=== PATIENT | male | born 1980 | race Caucasian/White ===

== ENCOUNTER 2016-06-06 03:15 | Emergency (ER) | payer OTHER ==
--- NOTE | ~2016-06-06 | EKG ---
PATIENT: SHANTE ISAAC UNIT #: [id number] Ventricular Rate: 120 BPM Atrial Rate: 120 BPM P-R Interval: 142 ms QRS Duration: 84 ms Q-T Interval: 302 ms QTC Calculation(Bezet): 426 ms P [place]: 68 degrees Calculated R [place]: 40 degrees Calculated T [place]: 139 degrees Diagnosis Line: Sinus tachycardia Diagnosis Line: Nonspecific ST and T wave abnormality Diagnosis Line: Abnormal ECG Diagnosis Line: When compared with ECG of 16-NOV-2014 19:38, Diagnosis Line: No significant change was found Diagnosis Line: Confirmed by JOJO BURCH MD ([id number]) on Diagnosis Line: 06/06/2016 12:01:38 PM INTERPRETING MD: RAVIN
--- NOTE | ~2016-06-06 | CT71 ---
[facility] A Service of [facility] RADIOLOGY TEXT RESULTS PATIENT: SHANTE ISAAC LOCATION: [facility] : 80 UNIT #: [id number] AGE: [address]: Grady Cassidy MD SEX: M ORDER DR: [id number] [facility] [address] [place], [place] [address] [id number] E MR#: [id number] #: [id number] NAME: SHANTE ISAAC. : 1980 SEX: M STUDY DATE/TIME: 06/06/2016 3:41 UNIT: SABRA ROOM: STUDY DESCRIPTION: CT Head Wo Contrast Attending Physician: Er Doctor Milind Ordering Physician: Bruce Orr M.D. Primary Care Physician: Cosmo Mars M.D. MEDICAL IMAGING REPORT This report is preliminary unless electronic signature is present EXAM CT head without IV contrast COMPARISON None INDICATION 35-year-old male with altered level of consciousness today. Combativeness. History of hypertension. Suspected drug overdose. TECHNIQUE This CT exam was performed with one or more of the following radiation dose reduction techniques: automatic exposure control, adjustment of mA and/or kV according to patient size, and iterative reconstruction. FINDINGS No acute fractures or suspicious osseous lesions. Mastoid air cells, middle ears and visualized paranasal sinuses are well-aerated. Normal cerebral volume. No abnormal extraaxial fluid collection or acute intracranial hemorrhage. No mass effect. No convincing evidence of acute ischemia. IMPRESSION Normal head CT. Dictated by... Neftaly Lopez M.D. THIS IS AN ELECTRONICALLY VERIFIED REPORT Neftaly Lopez M.D. at 06/06/2016 6:50 PM CRISTIANE/eleonora [facility] A Service [facility] RADIOLOGY TEXT RESULTS PATIENT: SHANTE ISAAC LOCATION: [facility] : 80 UNIT #: [id number] AGE: [address]: Grady Cassidy MD SEX: M ORDER DR: TD: 06/06/2016 08:14 JOB #: [id number] MEDICAL IMAGING REPORT COPY
--- NOTE | ~2016-06-06 | EKG ---
PATIENT: SHANTE ISAAC UNIT #: [id number] Ventricular Rate: 107 BPM Atrial Rate: 107 BPM P-R Interval: 134 ms QRS Duration: 86 ms Q-T Interval: 322 ms QTC Calculation(Bezet): 429 ms P [place]: 77 degrees Calculated R [place]: 30 degrees Calculated T [place]: 90 degrees Diagnosis Line: Sinus tachycardia Diagnosis Line: Nonspecific T wave abnormality Diagnosis Line: Abnormal ECG Diagnosis Line: When compared with ECG of 06-JUN-2016 07:07, Diagnosis Line: (unconfirmed) Diagnosis Line: No significant change was found Diagnosis Line: Confirmed by JOJO BURCH MD ([id number]) on Diagnosis Line: 06/06/2016 12:06:41 PM INTERPRETING MD: RAVIN
--- NOTE | ~2016-06-06 | CR72 ---
[facility] A Service of [facility] RADIOLOGY TEXT RESULTS PATIENT: SHANTE ISAAC LOCATION: [facility] : 80 UNIT #: [id number] AGE: [address]: Grady Cassidy MD SEX: M ORDER DR: [id number] [facility] [address] [place], [place] [address] [id number] E MR#: [id number] Acc #: [id number] NAME: SHANTE ISAAC. : 1980 SEX: M STUDY DATE/TIME: 06/06/2016 3:22 UNIT: [facility] ROOM: STUDY DESCRIPTION: CR Chest Single View Portable Attending Physician: Er Doctor [facility] Ordering Physician: Bruce Orr M.D. Primary Care Physician: Cosmo Mars M.D. MEDICAL IMAGING REPORT This report is preliminary unless electronic signature is present EXAM Portable AP view of the chest COMPARISON November 16, 2014. INDICTIONS 35-year-old male with dyspnea tonight. Hypoxia. Suspected drug overdose. FINDINGS No evidence of pneumothorax, pleural effusion or acute airspace disease. Cardiomediastinal silhouette is normal. IMPRESSION No acute radiographic abnormality. Dictated by... Neftaly Lopez M.D. THIS IS AN ELECTRONICALLY VERIFIED REPORT Neftaly Lopez M.D. at 06/06/2016 6:52 PM CRISTIANE/victoriano TD: 06/06/2016 08:25 JOB #: [id number] MEDICAL IMAGING REPORT COPY
[~2016-06-06 03:15] MED LIST: ADVIL200 M2 PO; ALLERGY RELIEF25 M1 PO; BACTRIM DS TABL1 TA1 PO; BUSPAR PO; CATAPRES-TTS-20.2 M1 PO; DEPAKOTE; DIVALPROEX SOD500 MG PO; FISH OIL300 MG; FLEXERIL PO; FLEXERIL10 MG PO; FLOMAX0.4 M1 DOB; IBUPROFEN800 MG PO; KETOPROFEN PO; LEVAQUIN PO; LINZESS290 MCG PO; LORTAB 7.5-5001 TAB; NEURONTIN; NEURONTIN PO; NO MEDICATIONS; NORCO 5/325 TAB1 TAB PO; NORCO 7.5-3251 EACH PO; NORFLEX100 M1 PO; OMEPRAZOLE40 M1 PO; PERCOCET 5-3251 TAB PO; PERPHENAZINE4 MG PO; SYMBICORT INH; TESSALON200 MG PO; THORAZINE PO; TRILEPTAL300 MG PO; TYLENOL EXTRA500 M1 PO; VOLTAREN75 MG PO; [UNRECOGNIZED DRUG - OTHER]
[2016-06-06 06:09] LABS: BASOPHIL# 0.1 X10e3 (0-0.3); BASOPHIL% 0.5 % (0-2.5); EOSINOPHIL# 0.2 X10e3 (0-0.7); EOSINOPHIL% 1.5 % (0.0-7.0); HEMATOCRIT 43.7 % (38.0-50.0); HEMOGLOBIN 14.7 gm/dL (13.0-16.0); LYMPHOCYTE# 2.7 X10e3 (1.0-3.5); LYMPHOCYTE% 20.8 % (17.0-45.0); MEAN CELL VOLUME 83.7 FL (83-96); MEAN CORPUSCULAR HEMOGLOBIN 28.2 PG (28-34); MEAN CORPUSCULAR HGB CONC 33.7 g/dL (30-36); MEAN PLATELET VOLUME 7.9 FL (6.5-11.5); MONOCYTE# 1.3 X10e3 (0-1.0); MONOCYTE% 10.1 % (3.0-12.0); NEUTROPHIL# 8.8 X10e3 (1.5-7.1); NEUTROPHIL% 67.1 % (40-75); PLATELET COUNT 266 X10e3 (140-420); RED BLOOD COUNT 5.22 X10e (3.90-5.60); RED CELL DISTRIBUTION WIDTH 13.8 % (11.0-15.5); WHITE BLOOD COUNT 13.1 X10e3 (4.0-10.5)
[2016-06-06 06:11] LABS: DIFF IND NO
[2016-06-06 06:47] LABS: ALBUMIN SERUM 4.5 g/dL (3.5-5.0); ALKALINE PHOSPHATASE 66 U/L (32-92); ALT (SGPT) 19 U/L (10-40); AST (SGOT) 23 U/L (10-42); BILIRUBIN, DIRECT 0.2 mg/dL (0.0-0.2); BILIRUBIN,TOTAL 1.2 mg/dL (0.2-2.0); BLOOD UREA NITROGEN 16 mg/dL (9-23); BUN/CREATININE RATIO 11.42; CALCIUM SERUM 9.1 mg/dL (8.4-10.2); CARBON DIOXIDE 23 mmol/L (22-31); CHLORIDE 106 mmol/L (100-111); CREATININE SERUM 1.4 mg/dL (0.6-1.4); GLOM FILT RATE Estimated ABOVE60 mL/min (>60); GLUCOSE FASTING 95 mg/dL (70-110); POTASSIUM 3.9 mmol/L (3.5-5.1); PROTEIN TOTAL SERUM 7.4 g/dL (6.0-8.3); SODIUM 138 mmol/L (135-145)
[2016-06-06 06:48] LABS: ALCOHOL BLOOD <5 mg/dL (0)
[2016-06-06 09:41] LABS: %MB 1.4 % (0.0-4.0); MB 7.8 ng/ml
[2016-06-06 16:21] LABS: AMPHETAMINE POS (NEG); BARBITURATES NEG (NEG); BENZODIAZEPINES POS (NEG); COCAINE POS (NEG); MARIJUANA NEG (NEG); OPIATES NEG (NEG); TRICYCLIC ANTIDEPRESSANTS NEG (NEG); U METHADONE NEG (NEG)
== END 2016-06-06 18:25 | disposition other institution (70) ==
LOC: CED 03:15
PROVIDERS: Emergency Medicine
DX: F11.122 Opioid abuse with intoxication with perceptual disturbance (principal); F11.159 Opioid abuse with opioid-induced psychotic disorder, unspecified; F15.122 Other stimulant abuse with intoxication with perceptual disturbance; F15.159 Other stimulant abuse with stimulant-induced psychotic disorder, unspecified; J45.909 Unspecified asthma, uncomplicated; K21.9 Gastro-esophageal reflux disease without esophagitis; F17.210 Nicotine dependence, cigarettes, uncomplicated; Z88.8 Allergy status to other drugs, medicaments and biological substances
CPT/HCPCS: 36415; 70450; 71010; 80048; 80076; 80307; 82550; 82553; 82947; 84484; 85025; 93005; 96361; 96372; 96374; 96375; 99285; G0480; J1630; J2060; J3486

== ENCOUNTER 2016-06-06 19:07 | Inpatient (IN) | payer OTHER ==
--- NOTE | ~2016-06-06 | PA ---
Unit #: [id number] #: [id number] Patient: SHANTE ISAAC [id number] [facility] [address] [place] [address] [id number] I MR#: [id number] NAME: SHANTE ISAAC. ROOM: P106 Age: 35 Sex: M Admission Date: 06/06/2016 : 1980 Date of Assessment: Attending Physician: Shilo Chi M.D. Admitting Physician: Shilo Chi M.D. Primary Care Physician: Cosmo Mars M.D. PSYCHIATRIC ASSESSMENT INFORMANT Patient's reliability, fair; chart reliability, good. CHIEF COMPLAINT History of methamphetamine abuse, cocaine abuse, depression. HISTORY OF PRESENT ILLNESS The patient was recently admitted to hospital on 03/09/2016 through 03/23/2016 with history of multiple admission in the past. The patient was admitted with the above-mentioned complaint. The patient lives at home with his grandmother. The patient presented at [facility] due to delusional thoughts that have caused him to have lack of sleep due to methamphetamine and cocaine. The patient reports no sleep in the last several days, lives with his grandmother currently on disability for mental illness. The patient stated that he uses about $200 worth of methamphetamine and 1 g of cocaine 2 to 3 days ago. The patient reported he knows that the [place] and Manoj are attempted to break into the grandmother's house and the patient was very paranoid, anxious, nervous, labile, agitated and received p.r.n. Haldol, Cogentin and Ativan. The patient reported someone is trying to kill him. The patient denied any suicidal or homicidal ideation, but delusional thoughts, mood lability, agitation, substance abuse, needing inpatient admission at this time for psychiatric stabilization. PAST PSYCHIATRIC HISTORY Remarkable for history of previous admission at [facility], [facility], 2005, 2008, 2014 and 2016 September and March. FAMILY HISTORY AND SOCIAL HISTORY The patient is on disability, lives with grandmother. MEDICAL HISTORY Remarkable for obesity, COPD, GERD, GI, long history of substance abuse including methamphetamine. MEDICATION HISTORY None. ALLERGIES No known drug allergies. SUBSTANCE ABUSE HISTORY Unit #: [id number] #: [id number] Patient: SHANTE ISAAC History of tobacco use, age of onset 13; alcohol, age of onset 13; marijuana, age of onset 13; crack cocaine, age of onset 22; amphetamine, age of onset 35; prescription medication, age of onset 35. History of blackouts. No history of any IV drug use. REVIEW OF SYSTEMS HEENT: Eyes clear. Ears, nose, mouth, throat clear. CARDIOVASCULAR: Unremarkable. RESPIRATORY: Unremarkable. GI: Unremarkable. : Unremarkable. SKIN: Unremarkable. LYMPH NODE: Unremarkable. NEUROLOGIC: Unremarkable. ENDOCRINE: Unremarkable. HEMATOLOGIC: Unremarkable. ALLERGIC/IMMUNOLOGIC: Unremarkable. MUSCULOSKELETAL: Muscle strength and tone, no atrophy or abnormal movement. Gait normal except as mentioned above. MENTAL STATUS EXAMINATION CONSTITUTIONAL: Measurement of vital signs; temperature 97.7, heart rate 70, respirations 21, blood pressure 109/70, weight is 240 pounds. GENERAL APPEARANCE: The patient is dressed casually. The patient did not show any facial deformity. MUSCULOSKELETAL: Please see above. PSYCHIATRIC EXAMINATION Description of speech; slow in rate, but regular. Description of thought process, circumstantial, delusional, paranoid. Description of abnormal psychotic thinking, delusional, paranoid as mentioned above, problem with anger, temper, mood lability, substance abuse, but no suicidal or homicidal ideation, but guarded, paranoid, agitation, aggression. Description of patient's judgment, concerning. Everyday activity, poor. Social situation, poor and concerning. Psychiatric condition, poor. Complete mental status examination; oriented in time, place, and person. Attention span and concentration, poor. Language, able to name object. Fund of knowledge, poor vocabulary poor. Mood and affect, labile. Insight and judgment, poor. ASSETS AND LIABILITIES Assets; the patient is articulate and is able to take care of his ADL. Liability; substance abuse and mood lability. ADMITTING DIAGNOSES Psychiatric: 1. Bipolar mood disorder, not otherwise specified, F31.89, most recent episode mixed with psychotic feature. 2. 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 3. Cocaine use disorder, severe, F14.20. Secondary diagnosis: Deferred. Medical diagnosis: Please refer to H and P. Stressors: Psychosocial stressors. PSYCHIATRIC PLAN, TREATMENT GOAL, AND DISCHARGE PLAN Unit #: [id number] #: [id number] Patient: SHANTE ISAAC 1. Advised to admit the patient on the inpatient unit. Provide safe, supportive, and structured environment. 2. Ordered labs; CBC, CMP, UA, and UDS. 3. Precaution for aggression, self-harm, psychosis. 4. The patient is to attend all the programing on the inpatient unit group therapy, individual therapy, and chemical dependency group. 5. Monitor for withdrawal symptoms and the patient was advised Zyprexa 10 mg at bedtime and Neurontin 300 mg three times a day. We will closely monitor the patient's mood and behavior. If needed, consider further adjustment of medication. Also ordered Diastat p.r.n. The patient's home medication continued including Depakote. 6. Treatment goal is to attain euthymic mood, gain insight into his problem, and learn coping skills. 7. Discharge plan; plan is to stabilize the patient and consider followup in outpatient program. ESTIMATED LENGTH OF STAY 2 weeks. Dictated by... Yee Mortensen/zane TD: 06/08/2016 06:31 JOB #: [id number] PSYCHIATRIC ASSESSMENT X Shilo Chi MD X PSYCHIATRIC ASSESSMENT
--- NOTE | ~2016-06-06 | PN ---
Unit #: [id number] #: [id number] Patient: SANTY ISAAC [id number] [facility] [address] [place] [address] [id number] I MR#: [id number] NAME: SANTY ISAAC. ROOM: [facility] Age: 35 Sex: M Admission Date: 06/06/2016 : 1980 Attending Physician: Shilo Chi M.D. Admitting Physician: Shilo Chi M.D. Primary Care Physician: Yee Torres PROGRESS NOTES DATE OF SERVICE 06/08/2016 DISCUSSION Santy Isaac is a 35-year-old female seen on 06/08/2016. The patient interviewed, chart reviewed. Obtained information from nursing staff. The patient was withdrawn, isolative, guarded. Hygiene and grooming poor. The patient missed his breakfast. The patient reports that he is still feeling paranoid but feeling somewhat better. The patient yesterday was extremely paranoid and received a p.r.n. Haldol IM. The patient was cooperative, redirectable. Reports making progress. The patient continues to be isolative, guarded, flat affect. Complete Review of Systems: Unremarkable. MENTAL STATUS EXAMINATION General Appearance: The patient dressed casually. Attention span, concentration: Poor. Oriented in place and person. Mood and affect: Labile. Speech: Slow. Thought process: Circumstantial, guarded, paranoid. Denied any thoughts of harming self or others but isolative, guarded, seclusive. Recent and remote memory: Poor. Insight and judgment: Poor. DIAGNOSES 1. Amphetamine abuse disorder, moderate. 2. Mood disorder not otherwise specified. 3. Psychosis not otherwise specified. ASSESSMENT/PLAN Advised to continue with current medication and therapeutic protocol. We will monitor response to medication and make further adjustment of medication. Dictated by... Yee Mortensen/lottie TD: 06/10/2016 07:17 JOB #: [id number] Unit #: [id number] #: [id number] Patient: SANTY ISAAC PROGRESS NOTES X Shilo Chi MD NOTE
--- NOTE | ~2016-06-06 | HP ---
Unit #: [id number] #: [id number] Patient: SANTY ISAAC [id number] [place] [address] [id number] I MR#: [id number] NAME: SANTY ISAAC. ROOM: P106 Age: 35 Sex: M Admission Date: 06/06/2016 : 1980 Attending Physician: Shilo Chi M.D. Admitting Physician: Shilo Chi M.D. Primary Care Physician: Cosmo Mars M.D. HISTORY AND PHYSICAL HISTORY OF PRESENT ILLNESS Santy is a 35 year old admitted to [address] [place] [address] reporting auditory and visual hallucinations. He has had other admissions to this facility for the same. PAST MEDICAL HISTORY 1. Long history of illicit substance abuse to include methamphetamine. 2. Obesity. 3. COPD. 4. GERD. 5. GI. PAST SURGICAL HISTORY Inguinal hernia repair. ALLERGIES No known drug allergies. SOCIAL HISTORY Smokes 1-1/2 packs per day. Drinks alcohol and admits to illicit substance abuse to include methamphetamine. FAMILY HISTORY Medically noncontributory. REVIEW OF SYSTEMS He does not answer any questions appropriately. He remains psychotic. Nursing staff reports no nausea, vomiting or diarrhea. He has had no cough or increased temperature. CURRENT MEDICATIONS 1. Detox protocol. 2. Neurontin 300 mg t.i.d. 3. Benadryl 50 mg q.h.s. PHYSICAL EXAMINATION GENERAL: Alert, obese, no apparent distress. VITAL SIGNS: Blood pressure 110/64, heart rate 80, respirations 16, temperature 98.6. WEIGHT: 240. HEIGHT: 6 feet 1 inch. SKIN: Warm and dry without rash or lesion. HEENT: Normocephalic. TMs not viewed. Oral and nasal passages clear. Conjunctivae clear. PERRLA. EOMs intact. Unit #: [id number] #: [id number] Patient: SANTY ISAAC NECK: Supple without lymphadenopathy or thyromegaly. HEART: Regular rate and rhythm without murmur. LUNGS: Clear. ABDOMEN: Soft, nontender. : Not done. EXTREMITIES: No evidence of cyanosis, clubbing or edema. Moves all without focal deficit. NEUROLOGICAL: Unable to complete extended exam. He does move all extremities without focal deficit. Hand sap bi architect is equal and gait is normal. IMPRESSION Psychiatric admission. RECOMMENDATIONS PSYCHIATRIC: Per psychiatrist. MEDICAL: See no contraindications to participate in facility's activities. MEDICAL PROGNOSIS Good. MEDICAL CONDITION Stable. Dictated by... Kenisha Gray P.A.-C. for Yee Proctor/angus TD: 06/07/2016 16:11 JOB #: [id number] HISTORY AND PHYSICAL X Kenisha Gray HISTORY AND PHYSICAL
--- NOTE | ~2016-06-06 | DS ---
Unit #: [id number] #: [id number] Patient: SHANTE ISAAC [id number] [facility] [address] [place] [address] [id number] I MR#: [id number] NAME: SHANTE ISAAC. ROOM: [facility] Age: 35 Sex: M Admission Date: 06/06/2016 : 1980 Discharge Date: 06/09/2016 Attending Physician: Shilo Chi M.D. Primary Care Physician: Cosmo Mars M.D. DISCHARGE SUMMARY REASON FOR ADMISSION Psychosis, substance abuse, depression. DIAGNOSTIC STUDIES LABORATORY RESULTS: Remarkable for urine drug screen positive for benzodiazepine, cocaine, amphetamine. HOSPITAL COURSE The patient was admitted to inpatient unit on 06/06/2016 on and discharged on 06/09/2016 against medical advice. The patient was still having problem with mood lability and paranoia. The patient was not treatment focused, oppositional, aggressive, hostile, but denied any thoughts of harming self or others. The patient will be benefitted with inpatient treatment, but the patient was not agreeable, therefore the patient was discharged. The patient was not holdable at this time. DISCHARGE MEDICATIONS None. 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 Secondary diagnosis: Deferred. Medical diagnosis: Please refer to H and P. Stressors: Psychosocial stressors. DISCHARGE INSTRUCTIONS The patient to follow up in outpatient clinic as per health care social worker. CONDITION ON DISCHARGE The patient was mad, angry, upset, labile. PROGNOSIS Guarded. DIET AND ACTIVITY As tolerated. The patient was not suicidal or homicidal at the time of discharge. Unit #: [id number] #: [id number] Patient: SHANTE ISAAC Dictated by... Yee Mortensen/zane TD: 06/11/2016 01:27 JOB #: [id number] DISCHARGE SUMMARY X Shilo Chi MD X DISCHARGE SUMMARY
--- NOTE | ~2016-06-06 | PN ---
Unit #: [id number] #: [id number] Patient: SANTY ISAAC [id number] [facility] [address] [place] [address] [id number] I MR#: [id number] NAME: SANTY ISAAC. ROOM: P106 Age: 35 Sex: M Admission Date: 06/06/2016 : 1980 Attending Physician: Shilo Chi M.D. Admitting Physician: Shilo Chi M.D. Primary Care Physician: Yee Torres PROGRESS NOTES DATE OF SERVICE: 06/07/2016 DISCUSSION Santy Isaac is a 35-year-old male, seen on 06/07/2016. The patient was guarded, paranoid, and isolative. The patient was very delusional, paranoid, thinking that somebody is going to break into grandmother's house. The patient was on the telephone agitated, aggressive, and received p.r.n. Haldol, Cogentin, and Ativan. Complete review of systems unremarkable. MENTAL STATUS EXAMINATION General appearance, the patient dressed casually. Attention span and concentration, poor. Oriented in place and person. Mood and affect, labile. Speech, rapid. Thought process, circumstantial. Association; the patient denied any thoughts of harming self or others, but aggressive, hostile, paranoid, delusional. Recent and remote memory, poor. Insight and judgment, poor. DIAGNOSES 1. Psychosis, not otherwise specified. 2. Bipolar mood disorder, not otherwise specified. 3. Amphetamine abuse. 4. Cocaine abuse, moderate. ASSESSMENT AND PLAN Advised to continue with current medication and therapeutic protocol. We will monitor response to medication and make further adjustment of medication. Dictated by... Yee Mortensen/mikel TD: 06/07/2016 20:43 JOB #: [id number] Unit #: [id number] #: [id number] Patient: SANTY ISAAC [place] PROGRESS NOTES X Shilo Chi MD X PROGRESS NOTE
== END 2016-06-09 12:20 | disposition home or self-care (01) | DRG 897 ==
LOC: P1S 19:07
PROC: HZ2ZZZZ Detoxification Services for Substance Abuse Treatment (ICD-10-PCS; principal; 2016-06-06)
DX: F15.222 Other stimulant dependence with intoxication with perceptual disturbance (principal); F14.20 Cocaine dependence, uncomplicated; F31.60 Bipolar disorder, current episode mixed, unspecified; J44.9 Chronic obstructive pulmonary disease, unspecified; K21.9 Gastro-esophageal reflux disease without esophagitis; G47.33 Obstructive sleep apnea (adult) (pediatric); E66.9 Obesity, unspecified; F29 Unspecified psychosis not due to a substance or known physiological condition
CPT/HCPCS: J0515; J1630; J2060

== ENCOUNTER 2016-06-24 17:29 | Emergency (ER) | payer OTHER | END 2016-06-24 17:52 | disposition home or self-care (01) | LOC: SED 17:29 | DX: S40.862A Insect bite (nonvenomous) of left upper arm, initial encounter (principal); S40.861A Insect bite (nonvenomous) of right upper arm, initial encounter; S80.862A Insect bite (nonvenomous), left lower leg, initial encounter; S80.861A Insect bite (nonvenomous), right lower leg, initial encounter; W57.XXXA Bitten or stung by nonvenomous insect and other nonvenomous arthropods, initial encounter; Y92.9 Unspecified place or not applicable; J45.909 Unspecified asthma, uncomplicated; K21.9 Gastro-esophageal reflux disease without esophagitis; F17.200 Nicotine dependence, unspecified, uncomplicated; G40.909 Epilepsy, unspecified, not intractable, without status epilepticus | CPT/HCPCS: 96372; 99283; J1100 ==

== ENCOUNTER 2016-07-10 13:17 | Inpatient (IN) | payer OTHER ==
--- NOTE | ~2016-07-10 | PN ---
Unit #: [id number] #: [id number] Patient: SANTY ISAAC [id number] [facility] [address] [place] [address] [id number] I MR#: [id number] NAME: SANTY ISAAC ROOM: P184 Age: 35 Sex: M Admission Date: 07/10/2016 : 1980 Attending Physician: Shilo Chi M.D. Admitting Physician: Shilo Chi M.D. Primary Care Physician: Yee Torres PROGRESS NOTES DATE OF SERVICE: 07/11/2016 DISCUSSION Santy Isaac is a 35-year-old male, seen on 07/11/2016. The patient interviewed, chart reviewed, and obtained information from nursing staff. The patient reports making progress. The patient wanted to be moved to [facility] to participate in CD programing, tolerating medication fairly well. Isolative, guarded. Complete review of systems unremarkable. MENTAL STATUS EXAMINATION General appearance; the patient dressed casually, tall, well built. Attention span and concentration, fair. Oriented in place and person. Mood and affect, labile. Speech, monotone. Thought process, concrete. The patient denied any thoughts of harming self or others, but guarded. Recent and remote memory, poor. Insight and judgment, poor. DIAGNOSIS Schizophrenia, chronic paranoid type. ASSESSMENT AND PLAN Advised to continue with current medication and therapeutic protocol. We will monitor response to medication and make further adjustment of medication. Dictated by... Yee Mortensen/zane TD: 07/11/2016 18:38 JOB #: [id number] Unit #: [id number] #: [id number] Patient: SANTY ISAAC PROGRESS NOTES Page 1 of 1 X Shilo Chi MD X PROGRESS NOTE
--- NOTE | ~2016-07-10 | DS ---
Unit #: [id number] #: [id number] Patient: SHANTE ISAAC [id number] [place] [address] [id number] I MR#: [id number] NAME: SHANTE ISAAC ROOM: P184 Age: 35 Sex: M Admission Date: 07/10/2016 : 1980 Discharge Date: 07/13/2016 Attending Physician: Shilo Chi M.D. Primary Care Physician: Cosmo Mars M.D. DISCHARGE SUMMARY REASON FOR ADMISSION Psychosis and depression. DIAGNOSTIC STUDIES LABORATORY RESULTS: Urine drug screen positive for benzodiazepine, cocaine, and amphetamine. HOSPITAL COURSE The patient was admitted to inpatient unit on 07/10/2016 and discharged on 07/13/2016. The patient was treated on the inpatient unit with behavior management, chemical dependency group, expressive therapy, psychoeducation, and psychotherapy. The patient was on MIW. The patient was able to show improvement in his mood and behavior, compliant, cooperative. Subsequently, the patient was discharged with a plan to follow up in outpatient program. DISCHARGE MEDICATIONS Depakote ER 500 mg b.i.d. for mood stabilization, Neurontin 400 mg b.i.d. for mood stabilization, Trilafon 4 mg in the morning and noon and 8 mg at bedtime for psychosis, Vistaril 25 mg t.i.d. for anxiety, and trazodone 100 mg at bedtime for sleep. DISCHARGE DIAGNOSES Psychiatric: 1. Schizophrenia, chronic paranoid type, F20.0. 2. Amphetamine use disorder, severe, F15.20. 3. Opioid use disorder, severe, F11.20. Secondary diagnosis: Deferred. Medical diagnoses: Obesity, hypertension, asthma, gastroesophageal reflux disease, seizure disorder, sleep apnea, irritable bowel syndrome. Stressors: Psychosocial stressors. DISCHARGE INSTRUCTIONS The patient is to follow up in outpatient clinic as per social services counselor. CONDITION ON DISCHARGE The patient was pleasant and cooperative. Denied any psychotic symptom or any suicidal ideation. PROGNOSIS Guarded. Unit #: [id number] #: [id number] Patient: SHANTE ISAAC DIET AND ACTIVITY As tolerated. Dictated by... Shilo Chi M.D. SZC/modl TD: 07/13/2016 22:31 JOB #: [id number] DISCHARGE SUMMARY Page 1 of 1 X Shilo Chi MD DISCHARGE SUMMARY
--- NOTE | ~2016-07-10 | PN ---
Unit #: [id number] #: [id number] Patient: SANTY ISAAC [id number] [facility] [address] [place] [address] [id number] MR#: [id number] NAME: SANTY ISAAC ROOM: P184 Age: 35 Sex: M Admission Date: 07/10/2016 : 1980 Attending Physician: Shilo Chi M.D. Admitting Physician: Shilo Chi M.D. Primary Care Physician: Yee Torres PROGRESS NOTES DATE 07/12/2016. DISCUSSION Santy Isaac is a 35-year-old male seen on 07/12/2016. The patient was interviewed, chart reviewed and obtained information from the nursing staff. The patient was compliant, cooperative and redirectale. Able to maintain safe before. The patient reports medication is helping him. He denied any hallucinations. Complete review of systems unremarkable. MENTAL STATUS EXAMINATION General appearance, the patient (1) . Attention span and concentration fair. Mood and affect brighter. Speech regular rate. Thought process goal directed. The patient denied any thoughts of harming self or others or any hallucinations. Able to participate in programming. Recent and remote memory fair. Insight and judgment fair to poor. DIAGNOSIS Schizophrenia, paranoid type. ASSESSMENT/PLAN Continue with current medications and therapy protocol. Will monitor response to medication and make further adjustments in medication. Dictated by... Yee Mortensen/mercy TD: 07/13/2016 09:44 JOB #: [id number] Unit #: [id number] #: [id number] Patient: SANTY ISAAC SULY PROGRESS NOTES Page 1 of 1 X Shilo Chi MD X PROGRESS NOTE
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
--- NOTE | ~2016-07-10 | CO ---
Unit #: [id number] #: [id number] Patient: SANTY ISAAC [id number] [place] [address] [id number] I MR#: [id number] NAME: SANTY ISAAC ROOM: P184 Age: 35 Sex: M Admission Date: 07/10/2016 : 1980 Attending Physician: Shilo Chi M.D. Primary Care Physician: Cosmo Mars M.D. Consultation Date: 07/10/2016 CONSULTATION REPORT SUBJECTIVE Santy is a 33-year-old who complained of a rash under his scrotum. We have been asked to assess and treat. ASSESSMENT The patient complains of rash. PLAN Desitin ointment b.i.d. p.r.n. Dictated by... Jerman Wright/zane TD: 07/11/2016 14:29 JOB #: [id number] CONSULTATION REPORT Page 1 of 1 X Kenisha Gray CONSULTATION REPORT
--- NOTE | ~2016-07-10 | HP ---
Unit #: [id number] #: [id number] Patient: SANTY ISAAC [id number] [place] [address] [id number] I MR#: [id number] NAME: SANTY ISAAC ROOM: P112 Age: 35 Sex: M Admission Date: 07/10/2016 : 1980 Attending Physician: Shilo Chi M.D. Admitting Physician: Shilo Chi M.D. Primary Care Physician: Cosmo Mars M.D. HISTORY AND PHYSICAL HISTORY OF PRESENT ILLNESS Santy is a 35-year-old admitted to [address] [place] [address] because of his polysubstance abuse. He has had other admissions to this facility for the same. He is admitted on as MIW taken out by his grandmother. PAST MEDICAL HISTORY 1. Long history of illicit substance abuse to include heroin and methamphetamine. 2. Obesity. 3. COPD. 4. GERD. 5. GI. PAST SURGICAL HISTORY Inguinal hernia repair. ALLERGIES No known drug allergies. SOCIAL HISTORY Smokes 1 1/2 packs per day. Drinks alcohol and admits to illicit substance abuse to include heroin and methamphetamine. FAMILY HISTORY Medically noncontributory. REVIEW OF SYSTEMS He does not answer all questions appropriately. There are no reports of nausea, vomiting, or diarrhea. He has no cough or increased temperature. No complaints or indications of chest pain. CURRENT MEDICATIONS 1. Trilafon 4 mg b.i.d., 8 mg q.h.s. 2. Depakote ER 1000 mg q.h.s. 3. Neurontin 400 mg b.i.d. 4. Vistaril 25 mg t.i.d. 5. Ibuprofen 800 mg t.i.d. 6. Nicorette gum p.r.n. 7. Milk of magnesia p.r.n. 8. Maalox p.r.n. 9. Tylenol p.r.n. PHYSICAL EXAMINATION Unit #: [id number] #: [id number] Patient: SANTY ISAAC GENERAL: Alert, well nourished, and in no apparent distress. VITAL SIGNS: Blood pressure 120/70, heart rate 80, respirations 16, temperature 98.6, weight 242 pounds, and height 6 feet, 1 inch. SKIN: Warm and dry without rash or lesion. HEENT: Normocephalic. TMs not viewed. Oral and nasal passages clear. Conjunctivae clear. PERRLA. EOMs intact. NECK: Supple without lymphadenopathy or thyromegaly. HEART: Regular rate and rhythm without murmur. LUNGS: Clear. ABDOMEN: Soft, nontender. : Not done. EXTREMITIES: No evidence of cyanosis, clubbing or edema. Moves all without focal deficit. NEUROLOGICAL: Grossly within normal limits. Cranial Nerves: II: Visual lopez are intact. III, IV AND : Extraocular movements are intact. Pupils are equal, round and reactive to light. V: Facial sensation is grossly normal. VII: Facial movements and expression are normal. VIII: Auditory acuity grossly intact. IX, X: Uvula is midline. Phonation is normal. XI: Patient shrugs shoulders and turns head normally. XII: Tongue protrudes in the midline. Sensory and Motor Function: Sensory and motor sensation is grossly normal. Motor: moves all extremities well. Coordination: Gait is normal. Deep Tendon Reflexes: Intact. IMPRESSION Psychiatric admission. RECOMMENDATIONS PSYCHIATRIC: Per psychiatrist. MEDICAL: I see no contraindication to participating in facility's activities. MEDICAL PROGNOSIS Good. MEDICAL CONDITION Stable. Dictated by... Jerman Wright/james TD: 07/11/2016 11:58 JOB #: [id number] Unit #: [id number] #: [id number] Patient: SANTY ISAAC HISTORY AND PHYSICAL Page 1 of 1 X Kenisha Gray HISTORY AND PHYSICAL
[2016-07-12 10:14] LABS: THYROID STIMULATING HORMONE 0.23 uIU/ml (0.34-5.60)
[2016-07-12 10:21] LABS: FREE THYROXIN (T4) 1.33 ng/dL (0.58-1.64)
== END 2016-07-13 09:53 | disposition home or self-care (01) | DRG 885 ==
LOC: P1S 13:17 → P1E 07-11 14:13
PROVIDERS: Psychiatry & Neurology Psychiatry
DX: F20.0 Paranoid schizophrenia (principal); F11.20 Opioid dependence, uncomplicated; R56.9 Unspecified convulsions; F14.20 Cocaine dependence, uncomplicated; F15.20 Other stimulant dependence, uncomplicated; I10 Essential (primary) hypertension; K21.9 Gastro-esophageal reflux disease without esophagitis; J45.909 Unspecified asthma, uncomplicated; E66.9 Obesity, unspecified; Z68.31 Body mass index [BMI] 31.0-31.9, adult; K58.9 Irritable bowel syndrome, unspecified; G47.33 Obstructive sleep apnea (adult) (pediatric); J44.9 Chronic obstructive pulmonary disease, unspecified; Z91.14 Patient's other noncompliance with medication regimen; F17.210 Nicotine dependence, cigarettes, uncomplicated; Z72.89 Other problems related to lifestyle; R21 Rash and other nonspecific skin eruption
CPT/HCPCS: 84439; 84443

== ENCOUNTER 2016-09-08 06:00 | Inpatient (IN) | payer OTHER ==
--- NOTE | ~2016-09-08 | HP ---
Unit #: [id number] #: [id number] Patient: SANTY ISAAC [id number] [place] [address] [id number] I MR#: [id number] NAME: SANTY ISAAC ROOM: P125 Age: 35 Sex: M Admission Date: 09/08/2016 : 1980 Attending Physician: Shilo Chi M.D. Admitting Physician: Shilo Chi M.D. Primary Care Physician: Cosmo Mars M.D. HISTORY AND PHYSICAL HISTORY OF PRESENT ILLNESS Santy is a 35 year old admitted to [facility] because of his continued polysubstance abuse. He has had numerous admissions to this facility for the same. PAST MEDICAL HISTORY 1. Long history of illicit substance abuse to include heroin and methamphetamine. 2. Obesity. 3. COPD. 4. GERD. 5. Obstructive sleep apnea. PAST SURGICAL HISTORY Inguinal hernia repair. ALLERGIES No known drug allergies. SOCIAL HISTORY He smokes 1-1/2 packs per day. Drinks alcohol and admits to a illicit substance abuse to include heroin and methamphetamine. FAMILY HISTORY Medically noncontributory. REVIEW OF SYSTEMS CONSTITUTIONAL: No fever or chills. HEENT: Denies any sore throat, ear pain or runny nose. CARDIOVASCULAR: Denies chest pain, irregular heart rhythm or palpitations. CHEST: Denies shortness of breath or cough. No hemoptysis. GASTROINTESTINAL: Denies nausea, vomiting, diarrhea or chronic constipation. ENDOCRINE: Denies history of increased thirst or urination. No recent significant weight loss or gain. GENITOURINARY: Denies dysuria, frequency, or hematuria. SKIN: Denies any rashes. HEMATOLOGIC: Denies history of increased bleeding or bruising. MUSCULOSKELETAL: Denies any hot, swollen joints. No generalized muscle pain. NEUROLOGIC: Denies problems with vision or speech. No frequent, severe headaches. No numbness, tingling or weakness in any extremities. Denies loss of bladder or bowel control. Unit #: [id number] #: [id number] Patient: SANTY ISAAC CURRENT MEDICATIONS 1. Detox protocol. 2. Trilafon 8 mg q.h.s. 3. Desyrel 100 mg q.h.s. 4. Depakote ER 500 mg b.i.d. 5. Neurontin 400 mg t.i.d. 6. Nicorette gum p.r.n. PHYSICAL EXAMINATION GENERAL: Alert, obese, in no apparent distress. VITAL SIGNS: Blood pressure 150/106, heart rate 80, respirations 16, temperature 98.6. WEIGHT: 242. HEIGHT: 6 feet 1 inch. SKIN: Warm and dry without rash or lesion. HEENT: Normocephalic. TMs not viewed. Oral and nasal passages clear. Conjunctivae clear. PERRLA. EOMs intact. NECK: Supple without lymphadenopathy or thyromegaly. HEART: Regular rate and rhythm without murmur. LUNGS: Clear. ABDOMEN: Soft, nontender. : Not done. EXTREMITIES: No evidence of cyanosis, clubbing or edema. Moves all without focal deficit. NEUROLOGICAL: Grossly within normal limits. Cranial Nerves: II: Visual lopez are intact. III, IV AND : Extraocular movements are intact. Pupils are equal, round and reactive to light. V: Facial sensation is grossly normal. VII: Facial movements and expression are normal. VIII: Auditory acuity grossly intact. IX, X: Uvula is midline. Phonation is normal. XI: Patient shrugs shoulders and turns head normally. XII: Tongue protrudes in the midline. Sensory and Motor Function: Sensory and motor sensation is grossly normal. Motor: moves all extremities well. Coordination: Gait is normal. Deep Tendon Reflexes: Intact. IMPRESSION Psychiatric admission. RECOMMENDATIONS PSYCHIATRIC: Per psychiatrist. MEDICAL: See no contraindications to participate in facility's activities. MEDICAL PROGNOSIS Good. MEDICAL CONDITION Stable. Dictated by... Kenisha Gray P.A.-C. for Keith Duran M.D. Unit #: [id number] #: [id number] Patient: SANTY ISAAC JOSE/angus TD: 09/08/2016 22:15 JOB #: [id number] HISTORY AND PHYSICAL Page 1 of 1 X Kenisha Gray HISTORY AND PHYSICAL
--- NOTE | ~2016-09-08 | DS ---
Unit #: [id number] #: [id number] Patient: SHANTE ISAAC [id number] [facility] [address] [place] [address] [id number] I MR#: [id number] NAME: SHANTE ISAAC ROOM: [facility] Age: 35 Sex: M Admission Date: 09/08/2016 : 1980 Discharge Date: 09/09/2016 Attending Physician: Shilo Chi M.D. Primary Care Physician: Cosmo Mars M.D. DISCHARGE SUMMARY REASON FOR ADMISSION Aggression, substance abuse. DIAGNOSTIC STUDIES LABORATORY RESULTS: None. HOSPITAL COURSE The patient was admitted to inpatient unit on 09/08/2016 and discharged on 09/09/2016. The patient was treated with behavior management, medication management, psychotherapy, structured milieu. The patient showed improvement in his mood and behavior. Denied any thoughts of harming self or others. Denied any psychotic symptom. Subsequently, the patient was discharged with a plan to follow up in outpatient program. DISCHARGE MEDICATIONS None. DISCHARGE DIAGNOSES Psychiatric: Schizophrenia, chronic paranoid type, F20.0; amphetamine use disorder, severe, F15.20; opioid use disorder, severe, F11.20; cocaine use disorder, severe, F14.20. Secondary diagnosis: Deferred. Medical diagnosis: Obesity, hypertension, asthma, gastroesophageal reflux disease, sleep apnea, irritable bowel syndrome. DISCHARGE INSTRUCTIONS The patient to follow up in outpatient clinic as per transition social worker. CONDITION ON DISCHARGE The patient was pleasant and cooperative. Denied any psychotic symptom or any suicidal ideation. PROGNOSIS Guarded. DIET AND ACTIVITY As tolerated. Dictated by... Shilo Chi M.D. Unit #: [id number] #: [id number] Patient: SHANTE ISAAC SZC/modl TD: 09/09/2016 16:01 JOB #: [id number] DISCHARGE SUMMARY Page 1 of 1 X Shilo Chi MD X DISCHARGE SUMMARY
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
== END 2016-09-09 08:55 | disposition home or self-care (01) | DRG 885 ==
LOC: P1S 09:41
PROC: HZ2ZZZZ Detoxification Services for Substance Abuse Treatment (ICD-10-PCS; principal; 2016-09-08)
DX: F20.0 Paranoid schizophrenia (principal); F11.20 Opioid dependence, uncomplicated; I10 Essential (primary) hypertension; F15.20 Other stimulant dependence, uncomplicated; F14.20 Cocaine dependence, uncomplicated; E66.9 Obesity, unspecified; J45.909 Unspecified asthma, uncomplicated; K21.9 Gastro-esophageal reflux disease without esophagitis; G47.30 Sleep apnea, unspecified; K58.9 Irritable bowel syndrome, unspecified; Z68.31 Body mass index [BMI] 31.0-31.9, adult
CPT/HCPCS: J0515; J1630; J2060; J3230

== ENCOUNTER 2016-09-20 12:38 | Emergency (ER) | payer OTHER ==
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
[2016-09-20] MEDS ORDERED: TRILAFON4 MG PO (12:46)
[2016-09-20] MEDS ORDERED: ZYPREXA (12:46)
== END 2016-09-20 13:39 | disposition home or self-care (01) ==
LOC: SED 12:38
DX: S62.316A Displaced fracture of base of fifth metacarpal bone, right hand, initial encounter for closed fracture (principal); J45.909 Unspecified asthma, uncomplicated; F31.9 Bipolar disorder, unspecified; F17.200 Nicotine dependence, unspecified, uncomplicated; X58.XXXA Exposure to other specified factors, initial encounter; Y92.9 Unspecified place or not applicable
CPT/HCPCS: 29125; 73110; 73130; 99283

== ENCOUNTER 2016-09-23 16:31 | Emergency (ER) | payer OTHER ==
[~2016-09-23 16:31] MED LIST changes: +TRILAFON4 MG PO; +ZYPREXA
== END 2016-09-23 17:16 | disposition left against medical advice (07) ==
LOC: CED 16:31
DX: I10 Essential (primary) hypertension (principal)
CPT/HCPCS: 99282

== ENCOUNTER 2016-09-25 20:10 | Emergency (ER) | payer OTHER ==
[2016-09-25] MEDS ORDERED: PRILOSEC PO (20:44)
[2016-09-26 00:45] LABS: URINE SOURCE CLEAN CATCH
[2016-09-26 00:48] LABS: URINE APPEARANCE CLEAR; URINE BILIRUBIN NEG (NEG); URINE BLOOD NEG (NEG); URINE COLOR YELLOW; URINE GLUCOSE NEG (NORM); URINE KETONE NEG (NEG); URINE LEUKOCYTE ESTERASE NEG (NEG); URINE NITRATE NEG (NEG); URINE PROTEIN NEG (NEG); URINE SPECIFIC GRAVITY <=1.005 (1.003-1.035); URINE UROBILINOGEN 0.2 MG/DL (NORM)
[2016-09-26 00:49] LABS: MICRO INDICATED? NO
[2016-09-26 01:13] LABS: AMPHETAMINE POS (NEG); BARBITURATES NEG (NEG); BENZODIAZEPINES NEG (NEG); COCAINE NEG (NEG); MARIJUANA NEG (NEG); OPIATES POS (NEG); TRICYCLIC ANTIDEPRESSANTS NEG (NEG); U METHADONE NEG (NEG)
== END 2016-09-26 02:41 ==
LOC: SED 20:10
PROVIDERS: Emergency Medicine
DX: F15.188 Other stimulant abuse with other stimulant-induced disorder (principal); J45.909 Unspecified asthma, uncomplicated; K21.9 Gastro-esophageal reflux disease without esophagitis; F31.9 Bipolar disorder, unspecified
CPT/HCPCS: 80307; 81003; 99285

== ENCOUNTER 2016-09-25 22:00 | Inpatient (IN) | payer OTHER ==
--- NOTE | ~2016-09-25 | PN ---
Unit #: [id number] #: [id number] Patient: SANTY ISAAC [id number] [facility] [address] [place] [address] [id number] I MR#: [id number] NAME: SANTY ISAAC ROOM: P122 Age: 35 Sex: M Admission Date: 09/26/2016 : 1980 Attending Physician: Sihlo Chi M.D. Admitting Physician: Shilo Chi M.D. Primary Care Physician: Yee Torres PROGRESS NOTES DATE 09/27/2016 DISCUSSION Santy Isaac is a 35-year-old male seen on 09/27/2016. Patient's mood continues to be labile but able to sleep good. Compliant with medication. Patient still guarded, paranoid, mood lability. Patient's speech pressured, disorganized thought process, paranoid, delusional, pacing in the hallway. Complete review of system unremarkable. MENTAL STATUS EXAMINATION General appearance, patient dressed casually. Attention span, concentration poor. Oriented in place and person. Mood and affect labile. Speech pressured. Thought process circumstantial, guarded. Recent and remote memory poor. Insight and judgement poor. DIAGNOSES 1. Bipolar mood disorder NOS. 2. Psychosis NOS. ASSESSMENT/PLAN Advised to continue with current medication and therapeutic protocol. If needed, consider further adjustment of medication. Dictated by... Yee Mortensen/angus TD: 09/28/2016 16:23 JOB #: [id number] Unit #: [id number] #: [id number] Patient: SANTY ISAAC PROGRESS NOTES Page 1 of 1 X Shilo Chi MD X PROGRESS NOTE
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
--- NOTE | ~2016-09-25 | HP ---
Unit #: [id number] #: [id number] Patient: SANTY ISAAC [id number] [facility] [address] [place] [address] [id number] I MR#: [id number] NAME: SANTY ISAAC ROOM: P122 Age: 35 Sex: M Admission Date: 09/26/2016 : 1980 Attending Physician: Shilo Chi M.D. Admitting Physician: Shilo Chi M.D. Primary Care Physician: Cosmo Mars M.D. HISTORY AND PHYSICAL HISTORY OF PRESENT ILLNESS Santy is a 35 year old, admitted to [address] [place] [address] because of his continued polysubstance abuse. He was just discharged from this facility after treatment for the same. The patient was seen and history and physical, dated 09/08/2016 was reviewed. This is current except he fractured his distal fifth metacarpal some days prior to admission. X-ray on 09/20/2016 confirmed this. He has the fourth and fifth finger alma-taped and is wearing a Velcro brace. He knows to follow up with primary care physician/orthopaedics. Please see history and physical, dated 09/20/2016 for complete history and physical examination. Dictated by... Kenisha Gray P.A.-C. for Yee Proctor/ambar TD: 09/27/2016 08:14 JOB #: [id number] HISTORY AND PHYSICAL Page 1 of 1 X Kenisha Gray HISTORY AND PHYSICAL
--- NOTE | ~2016-09-25 | DS ---
Unit #: [id number] #: [id number] Patient: SANTY ISAAC [id number] [place] [address] [id number] I MR#: [id number] NAME: SANTY ISAAC ROOM: P122 Age: 35 Sex: M Admission Date: 09/26/2016 : 1980 Discharge Date: 09/28/2016 Attending Physician: Shilo Chi M.D. Primary Care Physician: Cosmo Mars M.D. DISCHARGE SUMMARY REASON FOR ADMISSION Psychosis and substance abuse. DIAGNOSTIC STUDIES LABORATORY RESULTS: Urine drug screen positive for amphetamine and opiate. HISTORY OF PRESENT ILLNESS Santy Diaz is a 35-year-old male, admitted on 09/26/2016 and discharged on 09/28/2016. The patient was compliant with medication, but mood was labile. The patient was treated with chemical dependency group, structured milieu, and medication management. The patient was responsive to treatment and requested for discharge. The patient was denied any suicidal or homicidal ideation. Mood was labile. Denied any auditory or visual hallucination. Subsequently, the patient was discharged with a plan to follow up in outpatient program. DISCHARGE MEDICATIONS Depakote ER 500 mg 2 tablets at bedtime for mood stabilization and Trilafon 8 mg t.i.d. for psychosis. DISCHARGE DIAGNOSES Psychiatric: Schizophrenia, chronic, paranoid type, F20.0; amphetamine use disorder, moderate to severe, F15.20; opioid use disorder, severe, F11.20. Secondary diagnosis: Deferred. Medical diagnosis: Hypertension and chronic pain. Stressors: Psychosocial stressor. DISCHARGE INSTRUCTIONS The patient to follow up in outpatient clinic as per social media developer. CONDITION ON DISCHARGE The patient was pleasant and cooperative. Denied any psychotic symptom or any suicidal ideation. PROGNOSIS Guarded. DIET AND ACTIVITY As tolerated. Unit #: [id number] #: [id number] Patient: SANTY ISAAC Dictated by... Shilo Chi M.D. SZC/mikel TD: 09/28/2016 16:44 JOB #: [id number] DISCHARGE SUMMARY Page 1 of 1 X Shilo Chi MD DISCHARGE SUMMARY
[~2016-09-25 22:00] MED LIST changes: +PRILOSEC PO
== END 2016-09-28 09:45 | DRG 885 ==
LOC: P1S 09-26 03:55
DX: F20.0 Paranoid schizophrenia (principal); F15.20 Other stimulant dependence, uncomplicated; J44.9 Chronic obstructive pulmonary disease, unspecified; E66.9 Obesity, unspecified; K21.9 Gastro-esophageal reflux disease without esophagitis; G47.33 Obstructive sleep apnea (adult) (pediatric)

== ENCOUNTER 2016-10-03 17:17 | Emergency (ER) | payer OTHER ==
--- NOTE | ~2016-10-03 | CR142 ---
[facility] A Service of [facility] RADIOLOGY TEXT RESULTS PATIENT: SHANTE ISAAC LOCATION: SED : [birth year] UNIT #: [id number] AGE: [address]: KATIA CANALES SEX: M ORDER DR: [id number] [place] [id number] E MR#: [id number] Acc #: [id number] NAME: SHANTE ISAAC : 1980 SEX: M STUDY DATE/TIME: 10/03/2016 18:08 UNIT: SED ROOM: STUDY DESCRIPTION: CR Hand Min 3 Views Rt Attending Physician: (Dixie) Katia Canales Ordering Physician: Dixie Canales Primary Care Physician: Cosmo Mars M.D. MEDICAL IMAGING REPORT This report is preliminary unless electronic signature is present. EXAM Right hand. INDICATIONS Fall. Right hand and wrist pain. FINDINGS Three views of the right hand compared to the right wrist obtained 09/20/2016. There is an oblique fracture through the fifth metacarpal. There is increased callous formation. Overall alignment of the fracture is not changed. No new fractures. No foreign body. IMPRESSION No change in the alignment of the distal fifth metacarpal fracture. There is some bony callus formation indicating some interval healing. Dictated by... Van Correia M.D. THIS IS AN ELECTRONICALLY VERIFIED REPORT Van Correia M.D. at 10/04/2016 8:44 AM MARGARET/lucie TD: 10/04/2016 02:09 JOB #: [id number] MEDICAL IMAGING REPORT Page 1 of 1
== END 2016-10-03 18:38 | disposition home or self-care (01) ==
LOC: SED 17:17
DX: S60.562A Insect bite (nonvenomous) of left hand, initial encounter (principal); S60.561A Insect bite (nonvenomous) of right hand, initial encounter; F17.210 Nicotine dependence, cigarettes, uncomplicated; Z79.899 Other long term (current) drug therapy; W57.XXXA Bitten or stung by nonvenomous insect and other nonvenomous arthropods, initial encounter; Y92.9 Unspecified place or not applicable
CPT/HCPCS: 73130; 99283

== ENCOUNTER 2016-10-13 17:04 | Emergency (ER) | payer OTHER ==
--- NOTE | ~2016-10-13 | CR142 ---
[facility] A Service of [facility] RADIOLOGY TEXT RESULTS PATIENT: SHANTE ISAAC LOCATION: SED : 80 UNIT #: [id number] AGE: [address]: Chirag Galeano SEX: M ORDER DR: [id number] [address] [address] [id number] E MR#: [id number] Acc #: [id number] NAME: SHANTE ISAAC : 1980 SEX: M STUDY DATE/TIME: 10/13/2016 17:33 UNIT: SED ROOM: STUDY DESCRIPTION: CR Hand Min 3 Views Rt Attending Physician: Chirag Galeano P.A.-C. Ordering Physician: Chirag Galeano P.A.-C. Primary Care Physician: Cosmo Mars M.D. MEDICAL IMAGING REPORT This report is preliminary unless electronic signature is present. EXAM Right hand 10/13/2016 INDICATIONS 36-year-old male complaining of pain from a fracture on September. Patient reports that the fracture does not feel like it is getting any better. No new injury. The patient reports he may have to undergo surgery. TECHNIQUE 3 views right hand. No comparisons FINDINGS There is a subacute healing fracture deformity of the junction of the fifth metacarpal head and metacarpal shaft. Lucent fracture lines persist but there is evidence of callous formation. There is persistent mild soft tissue swelling. No distinct new fracture. Alignment at the subacute fracture site does not appear appreciably changed from the prior examination. IMPRESSION 1. Subacute healing fracture deformity with evidence of callous formation at the junction of the fifth metacarpal head and metacarpal shaft. No other significant interval change. Dictated by... Jonnathan Wayne M.D. THIS IS AN ELECTRONICALLY VERIFIED REPORT Jonnathan Wayne M.D. at 10/16/2016 2:58 PM TAMARA/gus [facility] A Service of [facility] RADIOLOGY TEXT RESULTS PATIENT: SHANTE ISAAC LOCATION: [facility] : [birth year] UNIT #: [id number] AGE: [address]: Chirag Galeano PAC SEX: M ORDER DR: TD: 10/14/2016 04:34 JOB #: [id number] MEDICAL IMAGING REPORT Page 1 of 1
== END 2016-10-13 18:29 | disposition home or self-care (01) ==
LOC: SED 17:04
DX: S62.396A Other fracture of fifth metacarpal bone, right hand, initial encounter for closed fracture (principal); J45.909 Unspecified asthma, uncomplicated; K21.9 Gastro-esophageal reflux disease without esophagitis; F31.9 Bipolar disorder, unspecified; K46.9 Unspecified abdominal hernia without obstruction or gangrene; F17.200 Nicotine dependence, unspecified, uncomplicated; Z91.040 Latex allergy status; Z88.5 Allergy status to narcotic agent; Z88.8 Allergy status to other drugs, medicaments and biological substances; Z79.899 Other long term (current) drug therapy; X58.XXXA Exposure to other specified factors, initial encounter
CPT/HCPCS: 29125; 73130; 90471; 96372; 99283; J3301

== ENCOUNTER 2016-11-03 18:00 | Inpatient (IN) | payer OTHER ==
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
--- NOTE | ~2016-11-03 | PN ---
Unit #: [id number] #: [id number] Patient: SANTY ISAAC [id number] [facility] [address] [place] [address] [id number] I MR#: [id number] NAME: SANTY ISAAC ROOM: P125 Age: 36 Sex: M Admission Date: 11/03/2016 : 1980 Attending Physician: Shilo Chi M.D. Admitting Physician: Shilo Chi M.D. Primary Care Physician: Yee Torres PROGRESS NOTES DATE OF SERVICE 11/06/2016 DISCUSSION Santy Isaac is a 36-year-old male seen on 11/06/2016. The patient interviewed, chart reviewed. Obtained information from nursing staff. The patient was compliant, cooperative. Mood was labile, anxious. The patient reported that he needed to be on medication for depression. Reported feeling sad, depressed, but denied any suicidal ideation. The patient was compliant, redirectable. Mild agitation. Complete Review of Systems: Unremarkable. MENTAL STATUS EXAMINATION General Appearance: The patient dressed casually. Attention span, concentration: Fair. Oriented in time, place, and person. Mood and affect labile. Speech: Monotone. Thought process: [place]. The patient denied any thoughts of harming self or others but mood lability. Isolative. Recent and remote memory: Poor. Insight and judgment: Poor. DIAGNOSIS Bipolar mood disorder not otherwise specified. ASSESSMENT/PLAN Advised to continue with current medication and therapeutic protocol. If needed, consider further adjustment of medication. Dictated by... Yee Mortensen/lottie TD: 11/07/2016 12:02 JOB #: [id number] Unit #: [id number] #: [id number] Patient: SANTY ISAAC SULY PROGRESS NOTES Page 1 of 1 X Shilo Chi MD X PROGRESS NOTE
--- NOTE | ~2016-11-03 | HP ---
Unit #: [id number] #: [id number] Patient: SHANTE ISAAC [id number] [facility] [address] [place] [address] [id number] I MR#: [id number] NAME: SHANTE ISAAC ROOM: P125 Age: 36 Sex: M Admission Date: 11/03/2016 : 1980 Attending Physician: Shilo Chi M.D. Admitting Physician: Shilo Chi M.D. Primary Care Physician: Cosmo Mars M.D. HISTORY AND PHYSICAL REASON FOR ADMISSION Acute psychiatric inpatient admission secondary to paranoid ideations, auditory hallucinations, suicidal ideation, homicidal ideation, substance abuse. HISTORY OF PRESENT ILLNESS The patient is a 36-year-old male, positive auditory hallucinations as well as paranoid ideations, who [facility]. PAST MEDICAL HISTORY Positive for alcohol, substance abuse, crack cocaine use, amphetamine abuse, underlying mental illness. Prior inpatient admissions to [facility] . HOME MEDICATIONS Gabapentin, Depakote, Atarax, and perphenazine. FAMILY HISTORY Reviewed, positive psychiatric illness. SOCIAL HISTORY No tobacco, alcohol, substance abuse noted. REVIEW OF SYSTEMS Please see HPI. Twelve point otherwise negative except for those positives noted in the HPI. PHYSICAL EXAMINATION GENERAL: Awake, alert, oriented to person, place, and time. Well built, well nourished. Does not appear to be in any acute distress. VITAL SIGNS: Temperature 98.2, pulse 68, respiratory rate 16, blood pressure 130/82. HEAD: Atraumatic. Normocephalic. EYES: Bilateral extraocular muscles are normal. Pupils equal, reactive to light and accommodation. Sclerae are normal. No jaundice. NECK: Neck is supple. No neck rigidity. No thyromegaly. No carotid bruit. No JVD. Oral mucosa is moist. CHEST: Bilateral vesicular breathing. Clear to auscultation. No basilar rales. CARDIOVASCULAR: S1 and S2 normal. No murmur, no gallop, no rub. Unit #: [id number] #: [id number] Patient: SHANTE ISAAC ABDOMEN: Soft, nontender. No organomegaly. Bowel sounds are normal. No hernia, no masses, no rebound, no guarding. EXTREMITIES: No pitting edema. No calf tenderness. Extremity pulses, including dorsalis pedis, have good volume. BACK: Normal spine curvature. No spine tenderness. No costovertebral angle tenderness. SPORTS PSYCHOLOGIST: Cranial nerves normal bilaterally. Motor function bilaterally symmetric and normal. Sensory system normal. SKIN: Warm and dry. INITIAL IMPRESSION 1. Acute psychiatric inpatient admission. 2. Substance abuse. PLAN As per psychiatrist. Medical condition stable. Medical prognosis is fair. There are no medical contraindications to the patient participating in activities while here at [facility]. Dictated by... Keith Duran M.D. SHLOMO/zane TD: 11/04/2016 17:23 JOB #: [id number] HISTORY AND PHYSICAL Page 1 of 1 X Keith Duran MD X HISTORY AND PHYSICAL
--- NOTE | ~2016-11-03 | PN ---
Unit #: [id number] #: [id number] Patient: SHANTE ISAAC [id number] [facility] [address] [place] [address] [id number] MR#: [id number] NAME: SHANTE ISAAC ROOM: P125 Age: 36 Sex: M Admission Date: 11/03/2016 : 1980 Attending Physician: Shilo Chi M.D. Admitting Physician: Shilo Chi M.D. Primary Care Physician: Yee Torres PROGRESS NOTES DATE 11/04/2016 DISCUSSION Shante Isaac is a 36-year-old male seen on 11/04/2016. The patient interviewed, chart reviewed, and obtained information from nursing staff. Patient compliant, cooperative. Mood sad, dysphoric, withdrawn, isolative, guarded, paranoid. REVIEW OF SYSTEMS Complete review of systems unremarkable. MENTAL STATUS EXAMINATION General appearance: Patient dressed casually. Attention span and concentration poor. Orientation in self and place. Mood and affect labile. Speech: Slow. Thought process circumstantial, guarded, paranoid, withdrawn, isolative, disorganized behavior. Recent and remote memory poor. Insight and judgment poor. DIAGNOSES 1. Bipolar mood disorder, not otherwise specified. 2. Psychosis, not otherwise specified. 3. Rule out schizophrenia, chronic paranoid type. 4. Polysubstance abuse. ASSESSMENT AND PLAN The patient to continue with current medication and therapeutic protocol. If needed, consider further adjustment of medication. Dictated by... Yee Mortensen TD: 11/05/2016 09:55 JOB #: [id number] Unit #: [id number] #: [id number] Patient: SHANTE ISAAC PROGRESS NOTES Page 1 of 1 X Shilo Chi MD X PROGRESS NOTE
--- NOTE | ~2016-11-03 | DS ---
Unit #: [id number] #: [id number] Patient: SANTY ISAAC [id number] [place] [address] [id number] MR#: [id number] NAME: SANTY ISAAC ROOM: P125 Age: 36 Sex: M Admission Date: 11/03/2016 : 1980 Discharge Date: 11/07/2016 Attending Physician: Shilo Chi M.D. Primary Care Physician: Cosmo Mars M.D. DISCHARGE SUMMARY REASON FOR ADMISSION Aggression, mood lability, paranoia. HISTORY OF PRESENT ILLNESS Santy Isaac is a 36-year-old white male, admitted on 11/03/2016 and the patient was discharged on 11/07/2016. The patient was admitted on MIW. The patient was able to maintain safe behavior. Compliant with medication. Maintained safe behavior on the unit. The patient was treated with expressive therapy, medication management, psychoeducation, psychotherapy, and structured milieu. The patient was responsive to treatment. Subsequently, the patient was discharged with a plan to follow up in outpatient program. DISCHARGE MEDICATIONS Trilafon 8 mg t.i.d. for psychosis, Depakote 1000 mg at bedtime for mood stabilization, Neurontin 600 mg t.i.d. for anxiety and mood stabilization, Protonix 40 mg once daily for GERD, MiraLAX 17 g daily for constipation, Colace 100 mg b.i.d. for constipation, Wellbutrin XL 150 mg in the morning for depression. DIAGNOSES Psychiatric: Schizophrenia, chronic paranoid type, F20.0; bipolar mood disorder, recurrent, severe, F31.9; cocaine use disorder, moderate, F14.20. Secondary diagnosis: Deferred. Medical diagnoses: Hypertension and chronic pain. Stressors: Psychosocial stressor. DISCHARGE INSTRUCTIONS The patient to follow up in outpatient clinic as per director of social services. CONDITION ON DISCHARGE The patient was pleasant and cooperative. Denied any psychotic symptom or any suicidal ideation. PROGNOSIS Guarded. DIET AND ACTIVITY As tolerated. Unit #: [id number] #: [id number] Patient: SANTY ISAAC Dictated by... Shilo Chi M.D. SZC/zane TD: 11/08/2016 04:01 JOB #: [id number] DISCHARGE SUMMARY Page 1 of 1 X Shilo Chi MD DISCHARGE SUMMARY
--- NOTE | ~2016-11-03 | PN ---
Unit #: [id number] #: [id number] Patient: SHANTE ISAAC [id number] [facility] [address] [place] [address] [id number] MR#: [id number] NAME: SHANTE ISAAC ROOM: P125 Age: 36 Sex: M Admission Date: 11/03/2016 : 1980 Attending Physician: Shilo Chi M.D. Admitting Physician: Shilo Chi M.D. Primary Care Physician: Yee Torres PROGRESS NOTES DATE OF SERVICE 11/05/2016 DISCUSSION Mr. Madera is a 36-year-old male. Patient interviewed, chart reviewed. Obtained information from nursing staff. Patient's vital signs 97.8, 76, 21, 100/62. The patient was consistently asking the same questions over and over again about going home. The patient's mood was labile, poor boundaries, impulsive, paranoia. Reported having problem with constipation and symptoms of GERD. Complete review of systems unremarkable. MENTAL STATUS EXAMINATION General appearance, patient dressed casually. Attention span and concentration poor. Oriented to place and person. Mood and affect labile. Speech monotone. Thought process concrete. Patient denied any thoughts of harming self or others but guarded, paranoid. Mood lability, paranoia. Recent and remote memory poor. Insight and judgement poor. DIAGNOSES Bipolar mood disorder NOS. ASSESSMENT/PLAN Advise to continue with current medication with a plan to add Protonix 40 mg daily and MiraLAX 17 mg daily and Colace 100 mg b.i.d. If needed consider further adjustment of medication. Dictated by... Yee Mortensen/imelda TD: 11/07/2016 04:23 JOB #: [id number] Unit #: [id number] #: [id number] Patient: SHANTE ISAAC SULY PROGRESS NOTES Page 1 of 1 X Shilo Chi MD X PROGRESS NOTE
== END 2016-11-07 14:15 | disposition home or self-care (01) | DRG 885 ==
LOC: P1S 18:00
DX: F20.0 Paranoid schizophrenia (principal); F31.4 Bipolar disorder, current episode depressed, severe, without psychotic features; I10 Essential (primary) hypertension; F14.20 Cocaine dependence, uncomplicated; G89.29 Other chronic pain

== ENCOUNTER 2016-11-25 02:18 | Emergency (ER) | payer OTHER ==
[~2016-11-25] VITALS: Ht 185.4 cm; Wt 113.4 kg
--- NOTE | ~2016-11-25 | CR72 ---
[facility] A Service of [facility] & [facility] RADIOLOGY TEXT RESULTS PATIENT: SHANTE ISAAC LOCATION: [facility] : [birth year] UNIT #: [id number] AGE: [address]: Nolan Lai SEX: M ORDER DR: [id number] [facility] [address] [place], [place] [address] [id number] MR#: [id number] Acc #: [id number] NAME: SHANTE ISAAC : 1980 SEX: M STUDY DATE/TIME: 11/25/2016 2:57 UNIT: [facility] ROOM: STUDY DESCRIPTION: CR Chest Single View Portable Attending Physician: Nolan Lai P.A.-C. Ordering Physician: Nolan Lai P.A.-C. Primary Care Physician: Cosmo Mars M.D. MEDICAL IMAGING REPORT This report is preliminary unless electronic signature is present EXAM Chest x-ray, 11/25/2016. HISTORY 36-year-old male in the ED with reported drug overdose. Shortness of air, confusion. TECHNIQUE AP portable chest x-ray. FINDINGS Heart size and pulmonary vascularity are within normal limits. The lungs are expanded and clear. No visible pulmonary infiltrate or pleural effusion. No change since 06/06/2016. IMPRESSION Negative chest. Dictated by... Jermain Tay M.D. THIS IS AN ELECTRONICALLY VERIFIED REPORT Jermain Tay M.D. at 11/25/2016 3:54 PM HEIDEW/harmony TD: 11/25/2016 12:32 JOB #: [id number] MEDICAL IMAGING REPORT Page 1 of 1 COPY
--- NOTE | ~2016-11-25 | CR142 ---
[facility] A Service of [facility] & [facility] RADIOLOGY TEXT RESULTS PATIENT: SHANTE ISAAC LOCATION: [facility] : 80 UNIT #: [id number] AGE: [address]: Nolan Lai SEX: M ORDER DR: [id number] [facility] [address] [place] [address] [place], [place] [address] [id number] E MR#: [id number] Acc #: [id number] NAME: SHANTE ISAAC : 1980 SEX: M STUDY DATE/TIME: 11/25/2016 2:52 UNIT: [facility] ROOM: STUDY DESCRIPTION: CR Hand Min 3 Views Rt Attending Physician: Nolan Lai P.A.-C. Ordering Physician: Nolan Lai P.A.-C. Primary Care Physician: Cosmo Mars M.D. MEDICAL IMAGING REPORT This report is preliminary unless electronic signature is present EXAM Right hand series, 11/25/2016 HISTORY 36-year-old male in the ED complaining of right hand pain after injury today. He reports punching an object. TECHNIQUE Three-view right hand series FINDINGS No acute fracture or dislocation is demonstrated. Old healed fracture of the distal fifth metacarpal shaft is noted with surrounding callus formation. IMPRESSION 1. No acute osseous abnormality. 2. Old fifth metacarpal fracture. Dictated by... Jermain Tay M.D. THIS IS AN ELECTRONICALLY VERIFIED REPORT Jermain Tay M.D. at 11/25/2016 3:54 PM Benson TD: 11/25/2016 12:30 JOB #: [id number] MEDICAL IMAGING REPORT Page 1 of 1 COPY
--- NOTE | ~2016-11-25 | EKG ---
PATIENT: SHANTE ISAAC UNIT #: [id number] Ventricular Rate: 82 BPM Atrial Rate: 82 BPM P-R Interval: 136 ms QRS Duration: 90 ms Q-T Interval: 344 ms QTC Calculation(Bezet): 401 ms P [place]: 36 degrees Calculated R [place]: 38 degrees Calculated T [place]: 32 degrees Diagnosis Line: Normal sinus rhythm Diagnosis Line: Nonspecific T wave abnormality Diagnosis Line: Abnormal ECG Diagnosis Line: No previous ECGs available Diagnosis Line: Confirmed by JOJO BURCH MD ([id number]) on Diagnosis Line: 11/26/2016 4:47:46 PM INTERPRETING MD: RAVIN
[2016-11-25 03:05] LABS: BASOPHIL% 0.5 % (0-2.5); EOSINOPHIL# 0.1 X10e3 (0-0.7); EOSINOPHIL% 1.3 % (0.0-7.0); HEMATOCRIT 38.6 % (38.0-50.0); HEMOGLOBIN 12.6 gm/dL (13.0-16.0); LYMPHOCYTE# 2.4 X10e3 (1.0-3.5); LYMPHOCYTE% 29.5 % (17.0-45.0); MEAN CELL VOLUME 78.6 FL (83-96); MEAN CORPUSCULAR HEMOGLOBIN 25.6 PG (28-34); MEAN CORPUSCULAR HGB CONC 32.6 g/dL (30-36); MEAN PLATELET VOLUME 7.8 FL (6.5-11.5); MONOCYTE# 0.8 X10e3 (0-1.0); MONOCYTE% 10.3 % (3.0-12.0); NEUTROPHIL# 4.8 X10e3 (1.5-7.1); NEUTROPHIL% 58.4 % (40-75); PLATELET COUNT 247 X10e3 (140-420); RED BLOOD COUNT 4.91 X10e (3.90-5.60); RED CELL DISTRIBUTION WIDTH 15.4 % (11.0-15.5); WHITE BLOOD COUNT 8.2 X10e3 (4.0-10.5)
[2016-11-25 03:06] LABS: DIFF IND NO
[2016-11-25 03:27] LABS: ALBUMIN SERUM 3.9 g/dL (3.5-5.0); ALKALINE PHOSPHATASE 73 U/L (32-92); ALT (SGPT) 18 U/L (10-40); AST (SGOT) 20 U/L (10-42); BILIRUBIN, DIRECT 0.1 mg/dL (0.0-0.2); BILIRUBIN,INDIRECT 0.3 mg/dL (0.0-0.9); BILIRUBIN,TOTAL 0.4 mg/dL (0.2-2.0); BLOOD UREA NITROGEN 17 mg/dL (9-23); BUN/CREATININE RATIO 14.16; CALCIUM SERUM 8.7 mg/dL (8.4-10.2); CARBON DIOXIDE 24 mmol/L (22-31); CHLORIDE 105 mmol/L (100-111); CREATININE SERUM 1.2 mg/dL (0.6-1.4); DEPAKENE (VALPROIC ACID) 16 ug/mL (50-125); GLOM FILT RATE Estimated 77.4 mL/min (>60); GLUCOSE FASTING 148 mg/dL (70-110); POTASSIUM 3.7 mmol/L (3.5-5.1); SALICYLATE <4.0 mg/dL; SODIUM 138 mmol/L (135-145)
[2016-11-25 03:35] LABS: ACETAMINOPHEN <10 ug/mL; ALCOHOL BLOOD <5 mg/dL ([, 0])
[2016-11-25 04:46] LABS: AMPHETAMINE NEG (NEG); BARBITURATES NEG (NEG); BENZODIAZEPINES NEG (NEG); COCAINE POS (NEG); MARIJUANA NEG (NEG); OPIATES NEG (NEG); TRICYCLIC ANTIDEPRESSANTS POS (NEG); U METHADONE NEG (NEG)
[2016-11-25 05:56] LABS: POC - CKMB <1.0 ng/mL (0.0-7.9); POC - TROPONIN <0.05 ng/mL (<=0.05)
== END 2016-11-25 07:53 ==
LOC: CED 02:18
PROVIDERS: Physician Assistant
DX: F32.9 Major depressive disorder, single episode, unspecified (principal); T40.5X2A Poisoning by cocaine, intentional self-harm, initial encounter; F31.9 Bipolar disorder, unspecified; F20.9 Schizophrenia, unspecified; F17.210 Nicotine dependence, cigarettes, uncomplicated; Z91.040 Latex allergy status; Z88.8 Allergy status to other drugs, medicaments and biological substances; Z79.899 Other long term (current) drug therapy
CPT/HCPCS: 36415; 71010; 73130; 80048; 80076; 80164; 80307; 82553; 84484; 85025; 93005; 96360; 99285; G0480

== ENCOUNTER 2016-11-25 05:00 | Inpatient (IN) | payer OTHER ==
[~2016-11-25] VITALS: Ht 185.4 cm; Wt 113.4 kg
--- NOTE | ~2016-11-25 | PN ---
Unit #: [id number] #: [id number] Patient: SANTY ISAAC [id number] [facility] [address] [place] [address] [id number] I MR#: [id number] NAME: SANTY ISAAC ROOM: P106 Age: 36 Sex: M Admission Date: 11/25/2016 : 1980 Attending Physician: Shilo Chi M.D. Admitting Physician: Shilo Chi M.D. Primary Care Physician: Yee Torres PROGRESS NOTES DATE OF SERVICE 11/28/2016 DISCUSSION Santy Isaac is a 36-year-old male seen on 11/28/2016. Patient interviewed, chart reviewed. Obtained information from nursing staff. Patient was compliant and cooperative. Mood sad, dysphoric, flat affect, guarded. Making progress. No side effects from medication but still paranoia. Complete review of systems unremarkable. MENTAL STATUS EXAMINATION General appearance, patient dressed casually. Attention span and concentration fair. Oriented to time, place and person. Mood and affect labile. Speech monotone. Thought process concrete. Patient denied any thoughts of harming self or others. Recent and remote memory poor. Insight and judgement poor. DIAGNOSES 1. Bipolar mood disorder NOS. 2. Schizophrenia chronic paranoid type. 3. Cocaine use disorder severe. ASSESSMENT/PLAN Advise to continue with current medication and therapeutic protocol. If needed consider further adjustment of medication. Dictated by... Yee Mortensen/imelda TD: 11/28/2016 23:18 JOB #: [id number] Unit #: [id number] #: [id number] Patient: SANTY ISAAC PROGRESS NOTES Page 1 of 1 X Shilo Chi MD X PROGRESS NOTE
--- NOTE | ~2016-11-25 | PN ---
Unit #: [id number] #: [id number] Patient: SANTY ISAAC [id number] [facility] [address] [place] [address] [id number] I MR#: [id number] NAME: SANTY ISAAC ROOM: P106 Age: 36 Sex: M Admission Date: 11/25/2016 : 1980 Attending Physician: Shilo Chi M.D. Admitting Physician: Shilo Chi M.D. Primary Care Physician: Yee Torres PROGRESS NOTES DATE 11/27/2016 DISCUSSION Santy Isaac is a 36-year-old male, seen on 11/27/2016. The patient interviewed, chart reviewed, and obtained information from the nursing staff. The patient became aggressive, impulsive, needing a p.r.n. Haldol, Cogentin, Ativan yesterday. The patient compliant and cooperative this morning. Mood was labile. The patient concerned about his upcoming court date and being homeless. REVIEW OF SYSTEMS Complete review of systems unremarkable. MENTAL STATUS EXAMINATION General appearance: Patient dressed casually. Attention span and concentration, fair. Oriented in place and person. Mood and affect, labile. Speech, monotone. Thought process, concrete. The patient denied any thoughts of harming self or others but guarded and paranoid, mood lability, agitation, aggression. Recent and remote memory, poor. Insight and judgment, poor. DIAGNOSES 1. Bipolar mood disorder, NOS. 2. Schizophrenia, chronic paranoid type. 3. Cocaine use disorder, severe. ASSESSMENT/PLAN Advised to continue with the current medication and therapeutic protocol, and if needed consider further adjustment of medication. Dictated by... Yee Mortensen/ambar TD: 11/28/2016 12:21 JOB #: [id number] Unit #: [id number] #: [id number] Patient: SANTY ISAAC SULY PROGRESS NOTES Page 1 of 1 X Shilo Chi MD PROGRESS NOTE
--- NOTE | ~2016-11-25 | PN ---
Unit #: [id number] #: [id number] Patient: SANTY ISAAC [id number] [facility] [address] [place] [address] [id number] I MR#: [id number] NAME: SANTY ISAAC ROOM: P106 Age: 36 Sex: M Admission Date: 11/25/2016 : 1980 Attending Physician: Shilo Chi M.D. Admitting Physician: Shilo Chi M.D. Primary Care Physician: Yee Torres PROGRESS NOTES DATE OF SERVICE: 11/26/2016 DISCUSSION Santy Isaac is a 36-year-old male, seen on 11/26/2016. The patient was compliant and cooperative yesterday, but became aggressive and needed p.r.n. Haldol 10, Cogentin 1, Ativan 1 mg IM. The patient was withdrawn, isolative, guarded, and paranoid. Vital signs; temperature 97.0, heart rate 74, respiratory rate 15, and blood pressure 109/64. REVIEW OF SYSTEMS Complete review of systems unremarkable. MENTAL STATUS EXAMINATION General appearance, the patient dressed casually. Attention span and concentration, fair. Oriented in time, place, and person. Mood and affect, sad, depressed, withdrawn, isolative, guarded, and paranoid. Recent and remote memory, poor. Denied any thoughts of harming self or others, but paranoid. Insight and judgment, fair to poor. DIAGNOSES Schizophrenia, chronic paranoid type, F20.0; cocaine use disorder, moderate, F14.20; and amphetamine use disorder, severe, F15.20. ASSESSMENT AND PLAN Continue with current medication and therapeutic protocol. If needed, consider further adjustment of medication. We will continue to follow and make necessary adjustment of medication if needed. Dictated by... Shilo Chi M.D. SZEsdras/mikel TD: 11/27/2016 19:08 JOB #: [id number] Unit #: [id number] #: [id number] Patient: SANTY ISAAC PROGRESS NOTES Page 1 of 1 X Shilo Chi MD PROGRESS NOTE
--- NOTE | ~2016-11-25 | DS ---
Unit #: [id number] #: [id number] Patient: SHANTE ISAAC [id number] [place] [address] [id number] I MR#: [id number] NAME: SHANTE ISAAC ROOM: [facility] Age: 36 Sex: M Admission Date: 11/25/2016 : 1980 Discharge Date: 11/29/2016 Attending Physician: Shilo Chi M.D. Primary Care Physician: Cosmo Mars M.D. DISCHARGE SUMMARY REASON FOR ADMISSION Suicidal ideation. DIAGNOSTIC STUDIES LABORATORY RESULTS: Unremarkable. HOSPITAL COURSE The patient was admitted to inpatient unit on 11/25/2016 and discharged on 11/29/2016. The patient was treated with group therapy, individual therapy, medication management. The patient was responsive to treatment, showed improvement. Subsequently, the patient was discharged with a plan to follow up in outpatient program. DISCHARGE MEDICATIONS Neurontin 600 mg t.i.d. for pain, the patient was given 2-week supply. Protonix 40 mg daily for GERD, Colace 100 mg daily for constipation, Wellbutrin 150 mg daily for depression, MiraLAX 17 g daily for constipation, Trilafon 8 mg t.i.d. for psychosis, and Depakote 1000 mg at bedtime for mood stabilization. DISCHARGE DIAGNOSES Psychiatric: Schizophrenia, chronic, paranoid type, F20.0; cocaine use disorder, severe, F14.20. Secondary diagnosis: Deferred. Medical diagnoses: Hypertension, chronic pain. Stressors: Psychosocial stressors. DISCHARGE INSTRUCTIONS The patient to follow up in outpatient clinic as per social media marketing manager. CONDITION ON DISCHARGE The patient was pleasant and cooperative. Denied any psychotic symptom or any suicidal ideation. PROGNOSIS Guarded. DIET AND ACTIVITY As tolerated. Unit #: [id number] #: [id number] Patient: SHANTE ISAAC Dictated by... Yee Mortensen/zane TD: 11/29/2016 17:43 JOB #: [id number] DISCHARGE SUMMARY Page 1 of 1 X Shilo Chi MD X DISCHARGE SUMMARY
--- NOTE | ~2016-11-25 | HP ---
Unit #: [id number] #: [id number] Patient: SHANTE ISAAC [id number] [facility] [address] [place] [address] [id number] I MR#: [id number] NAME: SHANTE ISAAC ROOM: P106 Age: 36 Sex: M Admission Date: 11/25/2016 : 1980 Attending Physician: Shilo Chi M.D. Admitting Physician: Shilo Chi M.D. Primary Care Physician: Cosmo Mars M.D. HISTORY AND PHYSICAL The patient is a 36-year-old male admitted to [facility] on 11/25/2016 for psychosis and substance abuse. Patient had a recent admission on 11/03/2016 where a full history and physical was completed. That history and physical has been reviewed. No changes need to be made. Dictated by... Mey Elder/angus TD: 11/25/2016 15:06 JOB #: [id number] HISTORY AND PHYSICAL Page 1 of 1 X LOUISE GONZALEZ APRN HISTORY AND PHYSICAL
--- NOTE | ~2016-11-25 | PA ---
Unit #: [id number] #: [id number] Patient: SHANTE ISAAC [id number] [facility] [place] [place] [address] [id number] I MR#: [id number] NAME: SHANTE ISAAC ROOM: P106 Age: 36 Sex: M Admission Date: 11/25/2016 : 1980 Date of Assessment: 11/25/2016 Attending Physician: Shilo Chi M.D. Admitting Physician: Shilo Chi M.D. Primary Care Physician: Cosmo Mars M.D. PSYCHIATRIC ASSESSMENT INFORMANT The patient reliability, poor informant; chart reliability, good. CHIEF COMPLAINT Aggression. HISTORY OF PRESENT ILLNESS Mr. Madera is a 36-year-old male, well known to us from his previous admission, last admitted on 11/03/2016, admitted due to aggression and suicidal ideation. The patient is on 72-hour hold. The patient had suicidal ideation with a plan to overdose on pills. Reported using 100 to 200 dollars worth of cocaine. No support system. Grandparents filed EPO against him due to his impulsive behavior. The patient denied any homicidal ideation. Denied any hallucination, but above-mentioned behavior. The patient was very agitated, required Haldol 10, Cogentin 1, Ativan 1 mg deep intramuscular. The patient was admitted on a 72-hour hold. PAST PSYCHIATRIC HISTORY Remarkable for history of previous multiple admissions at [facility]. Last admitted on 11/03/2016. FAMILY HISTORY AND SOCIAL HISTORY The patient has a poor support system. Grandmother has EPO against him. No history of abuse. History of legal charges in the past. MEDICAL HISTORY Remarkable for obesity, hypertension, chronic headache. MEDICATION HISTORY The patient is on Depakote, Vistaril, perphenazine. ALLERGIES No known drug allergies. SUBSTANCE ABUSE HISTORY History of cocaine abuse, age of onset 22; amphetamine, age of onset 30; recent use of cocaine as mentioned above. REVIEW OF SYSTEMS HEENT: Eyes, clear. Ears, nose, mouth, and throat; clear. CARDIOVASCULAR: Unremarkable. RESPIRATORY: Unremarkable. Unit #: [id number] #: [id number] Patient: SHANTE ISAAC GI: Unremarkable. : Unremarkable. SKIN: Unremarkable. LYMPH NODE: Unremarkable. NEUROLOGIC: Unremarkable. ENDOCRINE: Unremarkable. HEMATOLOGIC: Unremarkable. ALLERGIC/IMMUNOLOGIC: Unremarkable. MUSCULOSKELETAL: Muscle strength and tone, no atrophy or abnormal movement. Gait normal. MENTAL STATUS EXAMINATION CONSTITUTIONAL: Measurement of vital signs; temperature 98.7, heart rate 84, respirations 16, blood pressure 135/87. Height 6 feet 1 inch and weight 250 pounds. GENERAL APPEARANCE: The patient dressed casually. The patient did not show any facial deformity. PSYCHIATRIC EXAMINATION Description of speech; rapid, loud. Description of thought process, circumstantial. Description of association, circumstantial. Description of abnormal psychotic thinking; guarded, paranoid, agitated, hostile, aggressive, substance abuse. Description of the patient's judgment, concerning everyday activity, poor. Social situation, poor. Concerning psychiatric condition, poor. Complete mental status examination; oriented in time, place, and person. Recent and remote memory, poor. Attention span and concentration, poor. Language, fair. Fund of knowledge, fair. Vocabulary, fair. Mood and affect, labile. Insight and judgment, fair to slightly impaired. ASSETS AND LIABILITIES Assets, the patient is articulate and able to take care of his ADL. Liability, history of substance abuse, depression, psychosis. ADMITTING DIAGNOSES Psychiatric: Schizophrenia, chronic paranoid type, F20.0; cocaine use disorder, severe, F14.20. Secondary diagnosis: Deferred. Medical diagnosis: Hypertension, chronic back pain. Stressors: Psychosocial stressors. PSYCHIATRIC PLAN AND TREATMENT GOAL AND DISCHARGE PLAN 1. Advised to admit the patient on the inpatient unit. Provide safe, supportive, and structured environment. 2. Ordered labs; CBC, CMP, UA, and UDS. 3. Advised to resume home medications. The patient is on MiraLAX, Wellbutrin, Colace, Protonix, Depakote, perphenazine, Neurontin. The patient was given one time dose of Haldol 10, Cogentin 1, Ativan 1 mg deep intramuscular because of severe agitation. The patient to attend all the programing group therapy, individual therapy, chemical dependency group. 4. Treatment goal to attain euthymic mood, gain insight into his problem, and learn coping skills. 5. Discharge plan; plan to stabilize and consider followup in outpatient program. Unit #: [id number] #: [id number] Patient: SHANTE ISAAC ESTIMATED LENGTH OF STAY 5 to 7 days. Dictated by... Yee Mortensen/zane TD: 11/26/2016 09:30 JOB #: [id number] PSYCHIATRIC ASSESSMENT Page 1 of 1 X Shilo Chi MD PSYCHIATRIC ASSESSMENT
== END 2016-11-29 08:45 | disposition home or self-care (01) | DRG 885 ==
LOC: P1S 08:35 → P1E 08:35 → P1S 08:50
DX: F31.9 Bipolar disorder, unspecified (principal); F14.20 Cocaine dependence, uncomplicated; I10 Essential (primary) hypertension; F20.0 Paranoid schizophrenia; M54.9 Dorsalgia, unspecified; G89.29 Other chronic pain
CPT/HCPCS: J0515; J1630; J2060

== ENCOUNTER 2016-12-06 22:35 | Emergency (ER) | payer OTHER | END 2016-12-07 00:45 | disposition home or self-care (01) | LOC: CFTX 22:35 → CED 22:35 → CFTX 23:55 | DX: L30.9 Dermatitis, unspecified (principal); K21.9 Gastro-esophageal reflux disease without esophagitis; J45.909 Unspecified asthma, uncomplicated; G40.909 Epilepsy, unspecified, not intractable, without status epilepticus; F32.9 Major depressive disorder, single episode, unspecified; F17.210 Nicotine dependence, cigarettes, uncomplicated; Z79.899 Other long term (current) drug therapy; Z91.040 Latex allergy status; Z88.8 Allergy status to other drugs, medicaments and biological substances | CPT/HCPCS: 99282 ==